=== PATIENT | female | born 1950 | race Caucasian/White ===

== ENCOUNTER → 2023-03-04 | Outpatient (CLI) | payer MEDICARE ==
[2023-03-04 15:16] LABS: Basophils # (A) 0.02 X 10*3/uL (0.00-0.10); Basophils % (A) 0.3 %; Eosinophils # (A) 0.09 X 10*3/uL (0.04-0.35); Eosinophils % (A) 1.2 %; HCT 45.4 % (37.2-46.3); HGB 13.9 g/dL (12.0-15.0); Immature Grans, Automated 0.3 %; Lymphocytes # (A) 1.66 X 10*3/uL (0.90-5.00); Lymphocytes % (A) 22.7 %; MCH 27.7 pg (27.0-32.0); MCHC 30.6 g/dL (32.0-37.0); MCV 90.4 fL (80.0-97.0); Mean Platelet Volume 11.9 fL (9.5-12.2); Monocytes # (A) 0.59 X 10*3/uL (0.20-1.00); Monocytes % (A) 8.1 %; NRBC Per 100 WBC 0 /100 WBCS (0.0-0.0); Neutrophils # (A) 4.93 X 10*3/uL (1.80-7.70); Neutrophils % (A) 67.4 %; Platelet Count 309 X 10*3/uL (140-440); RBC 5.02 X 10*6/uL (4.10-5.20); WBC 7.31 X 10*3/uL (4.50-10.00)
[2023-03-04 15:28] LABS: African American GFR (CKD) 68.8 (60.0-200.0); Anion Gap 11.8 mmol/L (10.00-18.00); BUN/Creat Ratio 11.12 Ratio (12.00-20.00); Blood Urea Nitrogen 10.7 mg/dL (9.0-27.0); Calcium 10.4 mg/dL (8.7-10.3); Carbon Dioxide 24.5 mmol/L (20.0-27.5); Non-African American GFR(CKD) 59.4 (60.0-200.0); Potassium 4.3 mmol/L (3.5-5.5)
[2023-03-04 16:32] LABS: Amorphous Sediment,Urine Present /LPF (None Seen); Appearance,Urine Turbid (Clear); Bacteria,Urine Trace /HPF (None Seen); Bilirubin,Urine Small (Negative); Blood,Urine Large (Negative); Calcium Oxalate Crystals,Urine Present /LPF (None Seen); Color,Urine Red (Yellow); Ketones,Urine Negative (Negative); Nitrite,Urine Negative (Negative); PH, Urine 6.5 (5.0-8.0); Specific Gravity,Urine 1.015 (1.001-1.030)
== END | disposition home or self-care (01) ==
LOC: LABPAT 09:22
PROVIDERS: ATTEND Urology
DX: Z01.812 Encounter for preprocedural laboratory examination (principal); N20.0 Calculus of kidney; I21.4 Non-ST elevation (NSTEMI) myocardial infarction; R31.29 Other microscopic hematuria; R94.31 Abnormal electrocardiogram [ECG] [EKG]
CPT/HCPCS: 80048; 81001; 85025; 87086

== ENCOUNTER → 2023-03-15 | Outpatient (CLI) | payer MEDICARE ==
--- NOTE | 2023-03-15 15:05 | XR ---
EXAMINATION TYPE: XR KUB DATE OF EXAM: 03/15/2023 HISTORY: Pain Comparison: None.Single KUB is submitted for interpretation. Findings: Right renal calculi: 1.6 cm calculus mid pole right kidney Right ureteral calculi: Round calculus at right renal pelvis measuring 2.3 cm. Double pigtail uretera l stent is in place. Left renal calculi: Several small punctate radiopaque densities overlying the left kidney which may reflect small sub 2 millimeter calculi. Left ureteral calculi: Double pigtail ureteral stent is in place. Pelvic calcifications: None Visualized. Bowel gas pattern is unremarkable. No free air. No mass effects. IMPRESSION: 1. As above
== END | disposition home or self-care (01) ==
LOC: RADXRMAIN 14:38
PROVIDERS: ATTEND Urology
DX: N20.2 Calculus of kidney with calculus of ureter (principal)
CPT/HCPCS: 74018

== ENCOUNTER → 2023-03-30 | Outpatient (CLI) | payer MEDICARE ==
[2023-03-30 10:49] LABS: Appearance,Urine Clear (Clear); Bacteria,Urine Rare /hpf; Bilirubin,Urine Negative (Negative); Blood,Urine Large (Negative); Color,Urine Yellow; Glucose,Urine (UA) Negative (Negative); Ketones,Urine Negative (Negative); Leukocyte Esterase,Urine Large (Negative); Mucus,Urine Occasional /hpf; Nitrite,Urine Negative (Negative); PH, Urine 7.5 (5.0-8.0); Protein,Urine 1+ (Negative); RBC,Urine >182 /hpf (0-5); Urobilinogen,Urine <2.0 mg/dL (<2.0); WBC,Urine 21 /hpf (0-5)
[2023-03-30 15:03] LABS: Basophils # (A) 0.03 X 10*3/uL (0.00-0.10); Basophils % (A) 0.4 %; Eosinophils # (A) 0.09 X 10*3/uL (0.04-0.35); Eosinophils % (A) 1.2 %; HCT 42.8 % (37.2-46.3); HGB 13.4 d/dL (12.0-15.0); Lymphocytes # (A) 1.55 X 10*3/uL (0.90-5.00); Lymphocytes % (A) 21.3 %; MCH 28.5 pg (27.0-32.0); MCHC 31.3 d/dL (32.0-37.0); MCV 90.9 FL (80.0-97.0); Mean Platelet Volume 11.9 FL (9.5-12.2); Monocytes # (A) 0.51 X 10*3/uL (0.20-1.00); NRBC Per 100 WBC 0 X 10*3/uL (0.00-0.01); Neutrophils # (A) 5.07 X 10*3/uL (1.80-7.70); Neutrophils % (A) 69.8 %; Platelet Count 321 X 10*3/uL (140-440); RBC 4.71 X 10*6/uL (4.10-5.20); RDW 13.3 % (11.5-14.5); WBC 7.27 X 10*3/uL (4.50-10.00)
[2023-03-30 15:49] LABS: BUN/Creat Ratio 13.71 Ratio (12.00-20.00); Blood Urea Nitrogen 9.6 mg/dL (9.0-27.0); Calcium 10.2 mg/dL (8.7-10.3); Carbon Dioxide 26.4 mmol/L (21.6-31.8); Chloride 106 mmol/L (96-109); Glucose 104 mg/dL (70-110); Potassium 4.6 mmol/L (3.5-5.5); Sodium 143 mmol/L (135-145)
== END | disposition home or self-care (01) ==
LOC: LABPAT 09:13
PROVIDERS: ATTEND Urology
DX: Z01.812 Encounter for preprocedural laboratory examination (principal); N20.0 Calculus of kidney; R31.29 Other microscopic hematuria
CPT/HCPCS: 36415; 80048; 81001; 85025; 87086

== ENCOUNTER 2023-04-06 08:57 | Observation (INO) | payer MEDICARE ==
[2023-04-01 13:08] VITALS: BMI 35.6
--- NOTE | 2023-04-05 18:31 | P.GSHP ---
History of Present Illness H&P Date: 04/05/23 72 yo female with a history of stones. SHe had bilateral ureteral stones and a right staghorn calculous. Dr Sheth removed both sureteral stones. The left stent was removed but he was unable to remove the right stent. She comes for a right pcnl[large>2cm] as well as stent removal the risks and complications including failure to access the kidney failure to remove all the stone, failure to remove the stent, injury to the adjacent organs as well as the kidney and ureter.. She comes for this procedure. Past Medical History Past Medical History: GERD/Reflux Additional Past Medical History / Comment(s): DIVERTICULOSIS/DIVERTICULITIS. KIDNEY STONES. BORDERLINE ANEMIA History of Any Multi-Drug Resistant Organisms: None Reported Additional Past Surgical History / Comment(s): KIDNEY STONE/CONGENITAL URETHRAL BLOCKAGE Past Anesthesia/Blood Transfusion Reactions: No Reported Reaction, Motion Sickness Past Psychological History: No Psychological Hx Reported Smoking Status: Never smoker Past Alcohol Use History: None Reported Past Drug Use History: None Reported - Past Family History Mother Family Medical History: No Reported History Medications and Allergies Home Medications Medication Instructions Recorded Confirmed Type No Known Home Medications 04/01/23 04/01/23 History Allergies Allergy/AdvReac Type Severity Reaction Status Date / Time Penicillins Allergy Swelling. Verified 09/23/15 12:26 RASH Sulfa (Sulfonamide Allergy Rash/Hives Verified 09/23/15 12:26 Antibiotics) Surgical - Exam - General well developed, well nourished, no distress - Eyes normal ocular movement, no icteric - ENT no hearing loss, no congestion - Neck no masses, trachea midline - Respiratory normal respiratory effort, clear to auscultation - Abdomen Abdomen: soft, non tender, no guarding, no rigid, no rebound - Integumentary no rash, no abnormal pigmentation - Neurologic no disoriented, no combative - Psychiatric oriented to time, oriented to person, oriented to place, speech is normal, memory intact Results - Imaging Abdominal x-ray: report reviewed, image reviewed CT scan - abdomen: report reviewed, image reviewed CT scan - pelvis: report reviewed, image reviewed Assessment and Plan Assessment: Impression: right staghorn calculous, right retained stent. Plan: right pcnl[large], removal of right ureteral stent.
[~2023-04-06 08:57] MED LIST: DEXAMETHASONE SOD PHOSPHATE 4 MG/ML 1 ML VIAL IV ONE; GENTAMICIN 100 MG in SODIUM CHLORIDE 0.9% 100 ML IVPB PRN; HYDROmorphone 0.5 MG/0.5 ML SYRINGE IVP PRN; LACTATED RINGERS 1,000 ML IV SCH; ONDANSETRON 4 MG/2 ML VIAL IVP ONE
--- NOTE | 2023-04-06 09:47 | XR ---
EXAMINATION TYPE: XR KUB DATE OF EXAM: 04/06/2023 Comparison: 03/15/2023 Clinical History: 72-year-old KIDNEY STONES Findings: Right-sided ureteral stent. The stent is short, tip uncurled, likely in the distal ureter. Left-sided ureteral stent removed in the interval. There is a 1.8 cm stone redemonstrated right kidney. Large 2 .7 cm round calcification along the proximal third right ureteral stent. A couple punctate left renal calculi measuring up to 2 mm. Mild to moderate stool burden. Nonobstructive bowel gas pattern. Tiny pelvic phleboliths. Impression: 1. Right ureteral stent more proximally positioned than on 03/15/2023. Clinically correlate. The dista l end is uncurled and likely in the distal right ureter. 2. Bilateral nephrolithiasis measuring up to 1.8 cm on the right. 3. Additional 2.7 cm round stone projecting along the proximal third right ureteral stent.
[2023-04-06] MEDS ORDERED: PROPOFOL 10 MG/ML 20 ML VIAL IV ONE (11:12)
[2023-04-06] MEDS ORDERED: fentaNYL (PF) 50 MCG/ML 2 ML AMP ONE (11:12)
[2023-04-06] MEDS ORDERED: NEOSTIGMINE 1 MG/ML 10 ML VIAL ONE (11:12)
[2023-04-06] MEDS ORDERED: GLYCOPYRROLATE 0.2 MG/ML 2 ML VIAL ONE (11:12)
[2023-04-06] MEDS ORDERED: PHENYLEPHRINE-0.9% NACL SYG 1,000 MCG/10 ML SYRINGE ONE (11:12)
[2023-04-06] MEDS ORDERED: LIDOCAINE 2% INJ 20 MG/ML (2 ML VIAL) ONE (11:12)
[2023-04-06] MEDS ORDERED: MIDAZOLAM 2 MG/2 ML VIAL ONE (11:12)
[2023-04-06] MEDS ORDERED: ROCURONIUM 10 MG/ML (5 ML VIAL) IV ONE (11:12)
[2023-04-06] MEDS ORDERED: SUCCINYLCHOLINE CHLORIDE 200 MG/10 ML VIAL IV ONE (11:12)
[2023-04-06] MEDS ORDERED: IOPAMIDOL-370 100ML BTL MISCELLANE ONE (11:34)
[2023-04-06] MEDS ORDERED: LACTATED RINGERS 1,000 ML IV ONE (12:36)
[2023-04-06] MEDS ORDERED: ACETAMINOPHEN TAB 325 MG TAB PO PRN (12:57)
[2023-04-06] MEDS ORDERED: ONDANSETRON 4 MG/2 ML VIAL IVP PRN (12:57)
[2023-04-06] MEDS ORDERED: MAG HYDROX/AL HYDROX/SIMETH 30 ML CUP PO PRN (12:57)
[2023-04-06] MEDS ORDERED: HYDROmorphone PCA 10 MG/50 ML BAG IV PRN (12:59)
[2023-04-06] MEDS ORDERED: NALOXONE 0.4 MG/ML 1 ML VIAL IV PRN (12:59)
[2023-04-06] MEDS ORDERED: KETOROLAC 15 MG/ML 1 ML VIAL IVP PRN (12:59)
--- NOTE | 2023-04-06 13:04 | P.OP ---
Date of Procedure: 04/06/23 Preoperative Diagnosis: Right renal stones, large (greater than 2 cm), retained double-J catheter Postoperative Diagnosis: Same Procedure(s) Performed: Cystoscopy, placement of occluding balloon catheter right, percutaneous nephrostomy (Dr. gilmore), percutaneous nephrostolithotomy ultrasound, removal retained stent, placement of 10 J nephrostomy Anesthesia: WINDY Surgeon: Erich Tomas Estimated Blood Loss (ml): 50 Pathology: other Condition: stable (Stone) Disposition: PACU Indications for Procedure: Patient is 72. She previously has undergone bilateral ureteroscopy laser lithotripsy and stent placement. The stent has been removed. Unfortunately the right stent calcified and was unable to be removed. She has a 2-1/2 cm renal pelvis and a 1 cm middle pole calyceal stone and comes for percutaneous nephrostolithotomy as well as remove the stent Description of Procedure: Patient brought to the operating suite. Given general anesthesia. Placed in lithotomy position with a sterile prep and drape. Cystoscopy of the Foroblique lenses performed. The bladder wall shows chronic inflammation. The right ureter is intubated with an 025 wire that is passed up into the kidney. Over the wires passed a 5-Mohawk occluding balloon catheter up into the UPJ alongside the retained stent. Hurley catheters placed and secured to the ureteral catheter The patient is placed in a prone position with care to airways and extremities. Dr. Gilmore of radiology performed percutaneous access to the right middle pole calyx he carries a 1 cm stone. I dilate the tract to 30-Mohawk. Upon entering the sheath into the collecting system I see the retained right ureteral stent which is grasped and removed. The coiled tip was calcified. I then see the large right renal pelvic stone in the right renal pelvis. Using ultrasound I break up the stone into tiny pieces in either suction out or grasp the larger fragments. I removed all the renal pelvic stone. I pulled the sheath back into the middle pole calyx in which case I see the 1 cm stone which is also ground up with the ultrasound in either suction or remove with the grasping forceps. I then looked through the collecting system with the flexible nephroscope and see no remaining stone. A 10 J nephrostomy tubes placed. The patient is awakened and returned recovery room good condition. Blood loss is approximately 50 mL. She tolerated procedure well be placed in the hospital postoperatively.
--- NOTE | 2023-04-06 14:18 | FL ---
EXAMINATION TYPE: FL guidance operating room DATE OF EXAM: 04/06/2023 HISTORY: Fluoroscopy time Total dose area product (DAP) in uGy*m?, mGy*cm? (or similar): EXAMINATION TYPE: FL guidance operatin g room DATE OF EXAM: 04/06/2023 COMPARISON: NONE HISTORY: Right renal calcifications Procedure had been discussed with the patient by Dr. Tomas, risks, benefits, alternatives, were dis cussed and any questions were answered. Informed consent was obtained. The patient was in a semipro ne position prepped and draped on the OR table in the usual sterile fashion. Utilizing a 15 cm lengt h Chiba needle a single pass was made into a lower pole posterior calyx under fluoroscopic guidance. An 0.018 guidewire is passed through the needle and there was placement of a 6-Mongolian catheter sheat h system. There was conversion to a 0.035 system was performed with passage of a guidewire into the ureter utilizing a directional catheter. A second safety wire was placed. Remaining portion of pro cedure performed by . Approximately 2 minutes and 37 seconds of fluoroscopy was provided. 18.046 DAP IMPRESSION: 1. Successful intraoperative right nephrostomy prior to nephrolithotomy. IMPRESSION: 1. Fluoroscopy time.
[2023-04-06] MEDS: DEXTROSE 5%-0.45% NACL 1,000 ML IV SCH ×2 (14:45→20:50)
[2023-04-07] MEDS ORDERED: MORPHINE SULFATE 2 MG/ML SYRINGE IVP PRN (04:17)
[2023-04-07] MEDS: DEXTROSE 5%-0.45% NACL 1,000 ML IV SCH (05:51)
[2023-04-07] MEDS ORDERED: HYDROcodone/APAP 5-325MG 1 EACH TAB PO PRN (07:30)
--- NOTE | 2023-04-07 07:33 | P.PN ---
Subjective Progress Note Date: 04/07/23 Postoperative day from a right percutaneous nephrostolithotomy. She had some pain last night but it is subtle. The nephrostomy tube urine is clearing. The catheter urine is clear. Objective - Vital Signs Vital signs: Vital Signs Temp 98.9 F 04/07/23 07:25 Pulse 83 04/07/23 07:25 Resp 16 04/07/23 07:25 BP 122/77 04/07/23 07:25 Pulse Ox 93 L 04/07/23 07:25 FiO2 Intake & Output 04/06/23 04/07/23 04/07/23 18:59 06:59 18:59 Intake Total 1502.5 Output Total 2500 1300 600 Balance -997.5 -1300 -600 Weight 90.7 kg Intake: IV 1502.5 Output: Drainage 600 650 600 Right Back 600 650 600 Urine 1850 650 Estimated Blood Loss 50 Assessment and Plan Assessment: Impression/plan: A postoperative day #1 stable. I will discontinue the IV and place her on [place]. I will discontinue the Hurley. If her pain is controlled and she feels better she can be discharged home later today.
[2023-04-07 14:41] VITALS: BP 125/81; PULSE 78; RESP 16; TEMP 98.3
== END 2023-04-07 17:36 | disposition home or self-care (01) ==
LOC: OR 08:57 → 4SSUR 13:03 → OR 04-07 10:18
PROVIDERS: ADMIT Urology; ATTEND Urology
DX: N20.0 Calculus of kidney (principal); T83.89XA Other specified complication of genitourinary prosthetic devices, implants and grafts, initial encounter; Y73.3 Surgical instruments, materials and gastroenterology and urology devices (including sutures) associated with adverse incidents; Y83.8 Other surgical procedures as the cause of abnormal reaction of the patient, or of later complication, without mention of misadventure at the time of the procedure; N30.20 Other chronic cystitis without hematuria; K21.9 Gastro-esophageal reflux disease without esophagitis; Z87.442 Personal history of urinary calculi; Z88.0 Allergy status to penicillin; Z88.2 Allergy status to sulfonamides
CPT/HCPCS: 82365; 74018; 50081; 50384; G0378; C1769 ×6; C2628; C1729 ×4; C1894; J2250; J0330; J1100; J2710; J2405; J3010; J1580; J2370; J2704; Q9967; J1170; J2001

== ENCOUNTER → 2023-09-02 | Outpatient (CLI) | payer MEDICARE ==
--- NOTE | 2023-09-02 07:43 | US ---
EXAMINATION TYPE: US kidneys/renal and bladder DATE OF EXAM: 09/02/2023 COMPARISON: 04/06/2023 CLINICAL INDICATION: Female, 72 years old with history of N20.0 CALCULUS OF KIDNEY; Stent placement w ith lithotripsy April 08 - patient denies any signs or symptoms at this time. EXAM MEASUREMENTS: Right Kidney: 12.9 x 6.7 x 6.4 cm Septated cyst = 4.2 x 5.9 x 5.4 cm Left Kidney: 11.4 x 6.1 x 5.1 cm Bladder: Not fully distended WNL as vis Bilateral Jets seen: yes There is no evidence for hydronephrosis at this point in time. No nephrolithiasis is seen. No dee s are identified. The urinary bladder is anechoic. Bilateral ureteral jets are seen. IMPRESSION: 1. Mild dilation of the left renal collecting system. 2. No evidence for right obstructive uropathy. Stent graft not well appreciated on ultrasound. Consi ethan plain film and/or CT renal stone protocol. 3. Septated right renal cyst suggested.
== END | disposition home or self-care (01) ==
LOC: RADUSWWP 07:04
PROVIDERS: ATTEND Urology
DX: N20.0 Calculus of kidney (principal)
CPT/HCPCS: 76770; 83970

== ENCOUNTER → 2024-03-14 | Outpatient (CLI) | payer MEDICARE ==
--- NOTE | 2024-03-14 16:36 | CA ---
Transthoracic Echo Report Name: Viridiana López Age: 73 Gender: F : 1950 Exam Date: 03/14/2024 14:38 Exam Location: [facility] Ht (in): 62 Wt (lb): 220 Ordering Physician: Gabe Kent MD Attending/Referring Phys: Supervisor Telephone Clerks Sara Norris RDCS Procedure CPT: Indications: R01.1 CARDIAC MURMUR, UNSPECIFIED Cardiac Hx: Technical Quality: Good Contrast 1: Total Dose (mL): Contrast 2: Total Dose (mL): MEASUREMENTS (Male / Female) Normal Values 2D ECHO LV Diastolic Diameter PLAX 3.7 cm 4.2 - 5.9 / 3.9 - 5.3 cm LV Systolic Diameter PLAX 2.4 cm IVS Diastolic Thickness 1.2 cm 0.6 - 1.0 / 0.6 - 0.9 cm LVPW Diastolic Thickness 1.2 cm 0.6 - 1.0 / 0.6 - 0.9 cm LV Relative Wall Thickness 0.6 RV Internal Dim ED PLAX 2.3 cm LVOT Diameter 1.8 cm LV Diastolic Volume MOD BP 95.8 cm??? 67 - 155 / 56 - 104 cm??? LV Systolic Volume MOD BP 34.4 cm??? 22 - 58 / 19 - 49 cm??? LV Ejection Fraction MOD BP 64.1 % >= 55 % LV Cardiac Index MOD BP 2635.3 cm???/min???m??? LV Diastolic Volume MOD 4C 92.8 cm??? LV Systolic Volume MOD 4C 34.5 cm??? LV Ejection Fraction MOD 4C 62.8 % LV Cardiac Index MOD 4C 2501.1 cm???/min???m??? LV Diastolic Length 4C 8.9 cm LV Systolic Length 4C 7.2 cm LV Diastolic Volume MOD 2C 94.6 cm??? LV Systolic Volume MOD 2C 33.2 cm??? LV Ejection Fraction MOD 2C 64.9 % LV Cardiac Index MOD 2C 2636.4 cm???/min???m??? LV Diastolic Length 2C 8.4 cm LV Systolic Length 2C 6.9 cm LA Volume 77.8 cm??? 18 - 58 / 22 - 52 cm??? LA Volume Index 36.3 cm???/m??? 16 - 28 cm???/m??? Ascending Aorta Diameter 3.4 cm DOPPLER AV Peak Velocity 168.4 cm/s AV Peak Gradient 11.3 mmHg AV Mean Velocity 106.5 cm/s AV Mean Gradient 5.3 mmHg AV Velocity Time Integral 28.5 cm LVOT Peak Velocity 131.9 cm/s LVOT Peak Gradient 7.0 mmHg LVOT Velocity Time Integral 25.4 cm LVOT Stroke Volume 65.4 cm??? LVOT Stroke Volume Index 32.8 ml/m??? LVOT Cardiac Index 2806.3 cm???/min???m??? AV Area Cont Eq vti 2.3 cm??? AV Area Cont Eq pk 2.0 cm??? MV Area PHT 4.9 cm??? Mitral E Point Velocity 75.6 cm/s Mitral A Point Velocity 86.5 cm/s Mitral E to A Ratio 0.9 MV Deceleration Time 156.2 ms PV Peak Velocity 119.8 cm/s PV Peak Gradient 5.7 mmHg FINDINGS Left Ventricle Left ventricular ejection fraction is estimated at 60-65 %. Mildly increased septal wall thickness. Mildly increased posterior wall thickness. Left ventricular cavity size normal. No obvious regional wall motion abnormalities. Right Ventricle Normal right ventricular size and function. Unable to estimate the right ventricular systolic pressure. Right Atrium Normal right atrial size. Left Atrium Mild left atrial dilatation Mitral Valve Structurally normal mitral valve. No mitral stenosis, regurgitation or prolapse. Aortic Valve Trileaflet aortic valve. No aortic valve stenosis or regurgitation. Tricuspid Valve Structurally normal tricuspid valve. No tricuspid stenosis. No tricuspid regurgitation. Pulmonic Valve Structurally normal pulmonic valve. No pulmonic stenosis. No pulmonic regurgitation. Pericardium No pericardial effusion. Aorta Normal size aortic root and proximal ascending aorta. CONCLUSIONS Left ventricular ejection fraction is estimated at 60-65 %. No obvious regional wall motion abnormalities. Mild concentric LVH Normal right ventricular size and function. Mild left atrial dilatation. No significant valve dysfunction Previewed by: Dr Nate May (Electronically Signed) Final Date: 14 Mar 2024 16:35
== END | disposition home or self-care (01) ==
LOC: RADECHMAIN 14:35
PROVIDERS: ATTEND Family Medicine
DX: I51.7 Cardiomegaly (principal); R01.1 Cardiac murmur, unspecified
CPT/HCPCS: 93306

== ENCOUNTER 2024-03-27 08:17 | Day surgery (SDC) | payer MEDICARE ==
[2024-03-26 09:30] VITALS: BMI 40.2
[2024-03-27] MEDS: LACTATED RINGERS 1,000 ML IV SCH (08:50)
[2024-03-27] MEDS: IV FLUID CONTINUATION 1,000 ML IV ONE (08:51)
[2024-03-27 08:59] VITALS: TEMP 97
[2024-03-27] MEDS ORDERED: LIDOCAINE 1% INJ 10MG/ML (20 ML MDV) ONE (09:12)
[2024-03-27] MEDS ORDERED: PROPOFOL 10 MG/ML 20 ML VIAL IV ONE (09:12)
--- NOTE | 2024-03-27 09:33 | P.PCN ---
Date of Procedure: 03/27/24 Procedure(s) Performed: BRIEF HISTORY: Patient is a 73-year-old pleasant white female scheduled for an elective colonoscopy as a part of evaluation of intermittent rectal bleeding for the last 6 months duration. PROCEDURE PERFORMED: Colonoscopy with snare polypectomy. PREOPERATIVE DIAGNOSIS: Intermittent rectal bleeding. IV sedation per Anesthesia. PROCEDURE: After informed consent was obtained, the patient, was brought into the endoscopy unit. IV sedation was administered by Anesthesia under continuous monitoring. Digital rectal examination was normal. Initially the Olympus CF-160 flexible video colonoscope was then inserted in the rectum, gradually advanced into the cecum without any difficulty. Careful examination was performed as the scope was gradually being withdrawn. Ileocecal valve and the appendiceal orifice were visualized and appeared normal. Prep was excellent. Mucosa of the cecum, ascending colon, transverse colon, descending colon, sigmoid colon, and rectum appeared normal. In the proximal rectum there was a 2 cm thick pedunculated polyp that was removed by snare polypectomy. Scattered sigmoid diverticulosis seen. Retroflexion was performed in the rectum and no lesions were seen. The patient tolerated the procedure well. IMPRESSION: 2 cm thick pedunculated proximal rectal polyp status post snare polypectomy Scattered sigmoid diverticulosis RECOMMENDATIONS: Findings of this examination were discussed with the patient as well as her family. She was advised to follow-up with the biopsy results. If the biopsy reveals adenoma she can have repeat colonoscopy. 3 years..
[2024-03-27 09:39] VITALS: PULSE 86
[2024-03-27 10:01] VITALS: BP 133/81; RESP 15
== END 2024-03-27 10:07 | disposition home or self-care (01) ==
LOC: ORWHC2ENDO 08:17
PROVIDERS: ATTEND Internal Medicine Gastroenterology
DX: K62.1 Rectal polyp (principal); K57.30 Diverticulosis of large intestine without perforation or abscess without bleeding; K21.9 Gastro-esophageal reflux disease without esophagitis; Z88.0 Allergy status to penicillin; Z88.2 Allergy status to sulfonamides; Z87.442 Personal history of urinary calculi
CPT/HCPCS: 88305; 45380; 45385; J2001; J2704